=== PATIENT | female | born 1950 | race Caucasian/White ===

== ENCOUNTER 2024-03-24 08:36 | Inpatient (IN) | payer MEDICARE, OTHER ==
[2024-03-22 12:37] LABS: BILIRUBIN,URINE NEGATIVE (Neg); CLARITY,URINE CLOUDY (Clear); COLOR,URINE YELLOW (Yellow); GLUCOSE, URINE NEGATIVE (Neg); KETONES,URINE NEGATIVE (Neg); LEUKOCYTE ESTERASE ,URINE SMALL (Neg); NITRITES, URINE POSITIVE (Neg); OCCULT BLOOD,URINE LARGE (Neg); PH,URINE 5.5 (4.8-8.0); PROTEIN,URINE NEGATIVE (Neg); UROBILINOGEN,URINE 0.2 E.U/dL (0.2-1.0)
[2024-03-22 12:39] LABS: UA COLLECTION TYPE CLN CATCH MIDSTREAM
[2024-03-22 12:41] LABS: BASOPHILS % (AUTO) 0.3 % (0-1); EOSINOPHILS # (AUTO) 0.1 X10'3 (0-0.9); EOSINOPHILS % (AUTO) 1.2 % (0-6); LYMPHOCYTES # (AUTO) 1.8 X10'3 (1.1-4.8); LYMPHOCYTES % (AUTO) 22.9 % (21-51); MEAN CORPUSCULAR HEMOGLOBIN 31.3 PG (27.0-31.0); MEAN CORPUSCULAR HGB CONC 33.4 g/dL (33.0-36.5); MEAN CORPUSCULAR VOLUME 93.8 FL (78-98); MEAN PLATELET VOLUME 8.1 FL (7.4-10.4); MONOCYTES # (AUTO) 0.7 X10'3 (0-0.9); MONOCYTES % (AUTO) 8.9 % (2-12); NEUTROPHILS # (AUTO) 5.3 X10'3 (1.8-7.7); NEUTROPHILS % (AUTO) 66.7 % (42-75); PRE OP HEMATOCRIT 41.2 % (35.0-45.0); PRE OP HEMOGLOBIN 13.8 g/dL (12.0-16.0); PRE OP PLATELET COUNT 211 X10'3 (140-440); PRE OP WHITE BLOOD COUNT 7.9 10'3 (4.8-10.8); RED CELL DISTRIBUTION WIDTH 12.9 % (11.5-14.5)
[2024-03-22 12:48] LABS: BACTERIA,URINE 2+ /HPF (Neg); WBC,URINE TNTC /HPF (0-4)
[2024-03-22 12:49] LABS: RBC,URINE 20-50 /HPF (0-2); SQUAMOUS EPITHELIAL CELL,UR FEW /LPF (FEW); STARCH,URINE MODERATE /HPF (NEGATIVE)
[2024-03-22 12:54] LABS: PRE OP INR 1.1 INR; PRE OP PROTIME 11.4 SECONDS (9.0-12.0)
[2024-03-22 12:56] LABS: ALBUMIN 3.5 G/DL (3.4-5.0); ALBUMIN/GLOBULIN RATIO 0.8 (1.1-1.5); ALKALINE PHOSPHATASE 72 IU/L (46-116); BLOOD UREA NITROGEN 15 MG/DL (7-18); BUN/CREATININE RATIO 16.7 (10.0-20.0); CALCIUM 10.2 MG/DL (8.5-10.1); CHLORIDE 103 MMOL/L (99-107); PRE OP ALT 38 U/L (30-65); PRE OP ANION GAP 8 (8-16); PRE OP AST 23 U/L (10-37); PRE OP BILIRUB, TOTAL 0.4 MG/DL (0.0-1.0); PRE OP GLUCOSE 142 MG/DL (70-104); PRE OP POTASSIUM 4.3 MMOL/L (3.4-5.1); PRE OP SODIUM 139 MMOL/L (135-145); TOTAL CARBON DIOXIDE 28.3 MMOL/L (24-32); TOTAL PROTEIN 7.9 G/DL (6.4-8.2); eGFR 61 ML/MIN
[2024-03-22 13:52] LABS: HEMOGLOBIN A1C 7.1 % (4.5-6.2)
[~2024-03-24] VITALS: Ht 190.5 cm; Wt 120.4 kg
[2024-03-24] VITALS (28 sets, daily range): BP systolic 135–196; BP diastolic 53–81; PULSE 68–95; RESP 13–23; TEMP 97.7–98.7; O2SAT 88–97
[2024-03-24] MEDS: DOCUMENT DATE & TIME OF BETA-BLOCKER PO ONE (05:30)
[~2024-03-24 08:36] MED LIST: AMLO10TA13 PO; ASPI-1265 PO; ATOR10TA87 PO; DABI150C PO; ESCI-8 PO; EZET10TA6 PO; LANTUS SUBCUT; LOP25T PO; LOSA-415 PO; OMEP20CA15 PO; SEMA1PEN3 SUBCUT; TRAZ-256 PO; ondansetron/PF 4mg/2ml inj IV PRN
[2024-03-24] MEDS: famotidine 20mg tablet PO ONE (09:34)
[2024-03-24] MEDS: ringers solution, lacted 1,000 ML IV SCH (09:35)
[2024-03-24] MEDS: vancomycin 1,500 MG in NS 300ml IV soln IV ONE (09:36)
[2024-03-24] MEDS ORDERED: iohexol 350MG/ML 100ml bottle IV ONE (11:01)
[2024-03-24] MEDS ORDERED: sevoflurane 250ml liquid IH ONE (11:06)
[2024-03-24] MEDS ORDERED: fentaNYL/PF 50MCG/1 ML 2ML syringe ONE (11:22)
[2024-03-24] MEDS: protamine sulfate 10mg/ml inj. ONE (11:41)
[2024-03-24] MEDS ORDERED: midazolam 1 mg/ML 2ml injection ONE (11:48)
[2024-03-24] MEDS ORDERED: propofol inj 20 ML IV ONE (11:48)
[2024-03-24] MEDS ORDERED: rocuronium 10mg/ml inj IV ONE (11:48)
[2024-03-24] MEDS ORDERED: heparin 1,000unit/ml 10ml vial 10 ML ONE ×2 (11:48)
[2024-03-24] MEDS ORDERED: ondansetron/PF 4mg/2ml inj ONE (11:49)
[2024-03-24] MEDS ORDERED: dexamethasone sod phosphate 4mg/ml inj. ONE (11:49)
[2024-03-24] MEDS ORDERED: LIDOcaine 1%/PF 5ML 10 MG/ML VIAL ONE (11:49)
[2024-03-24] MEDS ORDERED: neostigmine methylsulfate 1 MG/ML 10ml vial ONE (12:19)
[2024-03-24] MEDS ORDERED: glycopyrrolate 0.2mg/ml inj ONE (12:19)
[2024-03-24] MEDS ORDERED: docusate sod 100mg capsule PO PRN (12:25)
[2024-03-24] MEDS ORDERED: proCHLORperazine 10 MG/2 ml inj IV PRN ×2 (12:25→12:30)
[2024-03-24] MEDS ORDERED: potassium Cl 40MEQ/1/2NS 520ml 520 ML IV PRN (12:25)
[2024-03-24] MEDS ORDERED: magnesium sulf-water 2g/50mL 50 ML IV PRN (12:25)
[2024-03-24] MEDS ORDERED: glucagon, human recombinant 1mg kit SUBCUT PRN (12:25)
[2024-03-24] MEDS ORDERED: ALPRAZolam 0.25mg tablet PO PRN (12:25)
[2024-03-24] MEDS ORDERED: DEXTROSE 15 GM of carb/4 tabs (each vial/BOTTLE has 4 tablets) PO PRN ×2 (12:25)
[2024-03-24] MEDS ORDERED: dextrose 50%-water 50ml dispensing syringe IV PRN ×2 (12:25)
[2024-03-24] MEDS ORDERED: potassium Cl 40MEQ/270ML bag 250 ML IV PRN (12:25)
[2024-03-24] MEDS ORDERED: potassium CL 10mEq/100ml bag 100 ML IV PRN (12:25)
[2024-03-24] MEDS ORDERED: HYDROcodone/acetaminophen 5mg/325mg tablet PO PRN (12:25)
[2024-03-24] MEDS ORDERED: potassium Cl 20mEq/100mL bag 100 ML IV PRN (12:25)
[2024-03-24] MEDS ORDERED: labetalol 20mg/4ml (5mg/ml) syringe IV PRN ×2 (12:25→12:30)
[2024-03-24] MEDS ORDERED: ondansetron/PF 4mg/2ml inj IV PRN ×2 (12:25→12:30)
[2024-03-24] MEDS ORDERED: acetaminophen 325mg tablet PO PRN (12:25)
[2024-03-24] MEDS ORDERED: hydrALAZINE 20mg/ml inj. IV PRN ×2 (12:25→12:30)
[2024-03-24] MEDS ORDERED: diphenhydrAMINE 25mg capsule PO PRN (12:25)
[2024-03-24] MEDS ORDERED: pantoprazole 40mg Tablet.DR PO PRN (12:25)
[2024-03-24] MEDS ORDERED: potassium Cl 20 mEq SR tablet PO PRN (12:25)
[2024-03-24] MEDS ORDERED: magnesium sulf-water 4G/100mL 100 ML IV PRN (12:25)
[2024-03-24] MEDS ORDERED: morphine 4 MG/ML inj SYRINge IV PRN (12:30)
[2024-03-24] MEDS ORDERED: meperidine/PF 25mg/ml syringe IV PRN (12:30)
[2024-03-24] MEDS ORDERED: ringers solution, lacted 1,000 ML IV SCH (12:30)
[2024-03-24] MEDS ORDERED: morphine 2 MG/ML inj. syringe IV PRN (12:30)
[2024-03-24] MEDS ORDERED: HYDROmorphone/PF 0.2 MG/ML SYRINGE IV PRN ×2 (12:30)
[2024-03-24] MEDS: acetaminophen 1,000mg/100ml IV 100 ML IV ONE (13:14)
[2024-03-24] MEDS: normal saline 1000ml 1,000 ML IV SCH (15:15)
[2024-03-24] MEDS: sod chloride 0.9% 10ml flush syringe IV SCH (16:01)
[2024-03-24] MEDS ORDERED: INSULIN LISPRO 100 UNIT/ML INSULN.PEN MULTI-DOSE SQ SCH (17:00)
[2024-03-24] MEDS: INSULIN LISPRO 100 UNIT/ML INSULN.PEN MULTI-DOSE SQ SCH (17:00)
[2024-03-24] MEDS: atorvastatin 10mg tablet PO SCH (21:07)
[2024-03-24] MEDS: metoprolol tartrate 25mg tablet PO SCH (21:07)
[2024-03-24] MEDS: vancomycin/NS 1 GM ADD-VANTAGE 250 ML IV SCH (21:09)
[2024-03-24] MEDS: traZODone 50mg tablet PO SCH (22:03)
[2024-03-24] MEDS: HALLS - SOOTHE MENTHOL 1.8 MG cough drop LOZENGE MM PRN (23:25)
[2024-03-25 02:00] VITALS: BP 136/55; PULSE 65; RESP 20; TEMP 98.7; O2SAT 97
[2024-03-25 06:30] VITALS: O2SAT 94
[2024-03-25 07:03] LABS: BASOPHILS % (AUTO) 0.1 % (0-1); EOSINOPHILS % (AUTO) 0 % (0-6); HEMATOCRIT 39.9 % (35.0-45.0); HEMOGLOBIN 13.5 g/dl (12.0-16.0); LYMPHOCYTES # (AUTO) 1.1 X10'3 (1.1-4.8); LYMPHOCYTES % (AUTO) 11.3 % (21-51); MEAN CORPUSCULAR HEMOGLOBIN 31.7 PG (27.0-31.0); MEAN CORPUSCULAR HGB CONC 33.9 g/dL (33.0-36.5); MEAN CORPUSCULAR VOLUME 93.5 FL (78-98); MEAN PLATELET VOLUME 8.2 FL (7.4-10.4); MONOCYTES # (AUTO) 0.8 X10'3 (0-0.9); MONOCYTES % (AUTO) 7.5 % (2-12); NEUTROPHILS # (AUTO) 8.1 X10'3 (1.8-7.7); NEUTROPHILS % (AUTO) 81.1 % (42-75); PLATELET COUNT 179 X10'3 (140-440); RED BLOOD COUNT 4.26 X10'6 (4.20-5.60); RED CELL DISTRIBUTION WIDTH 12.8 % (11.5-14.5)
[2024-03-25 07:12] LABS: PROTHROMBIN TIME 11.2 SECONDS (9.0-12.0)
[2024-03-25 07:24] LABS: ALANINE AMINOTRANSFERASE 28 U/L (12-78); ALBUMIN 2.9 G/DL (3.4-5.0); ALBUMIN/GLOBULIN RATIO 0.8 (1.1-1.5); ALKALINE PHOSPHATASE 54 IU/L (46-116); ANION GAP 7 (8-16); ASPARTATE AMINO TRANSFERASE 23 U/L (10-37); BILIRUBIN,TOTAL 0.4 MG/DL (0.1-1.0); BLOOD UREA NITROGEN 16 MG/DL (7-18); BUN/CREATININE RATIO 18.4 (10.0-20.0); CALCIUM 9.2 MG/DL (8.5-10.1); CHLORIDE 105 MMOL/L (99-107); CREATININE 0.87 MG/DL (0.40-0.90); GLUCOSE 179 MG/DL (70-104); POTASSIUM 4.2 MMOL/L (3.5-5.1); PRO BRAIN NATRIURETIC PEPTIDE 937 PG/ML (0-450); SODIUM 139 MMOL/L (135-145); TOTAL CARBON DIOXIDE 27.1 MMOL/L (24-32); TOTAL PROTEIN 6.7 G/DL (6.4-8.2); eCRCL 71 ML/MIN; eGFR 63 ML/MIN
[2024-03-25 08:00] VITALS: BP 157/63; PULSE 78; RESP 17; TEMP 98.3; O2SAT 97
[2024-03-25] MEDS: pantoprazole 40mg Tablet.DR PO SCH (08:17)
[2024-03-25] MEDS: ezetimibe 10mg tablet PO SCH (08:17)
[2024-03-25] MEDS: losartan 25mg tablet PO SCH (08:18)
[2024-03-25] MEDS: amLODIPine 5mg tablet PO SCH (08:18)
[2024-03-25] MEDS: ESCITALOPRAM 10 mg tablet 10 MG TABLET PO SCH (08:19)
[2024-03-25] MEDS: dabigatran 150mg capsule PO SCH (10:03)
[2024-03-25] MEDS: ciprofloxacin 250mg tablet PO ONE (10:03)
[2024-03-25 11:00] VITALS: BP 149/66; PULSE 71; RESP 12; TEMP 98.1; O2SAT 96
== END 2024-03-25 17:15 | disposition home or self-care (01) | DRG 274 ==
LOC: PAS IN 08:36 → PCU 3S 15:02
PROVIDERS: ADMIT Student in an Organized Health Care Education/Training Program; ATTEND Student in an Organized Health Care Education/Training Program
PROC: B24BZZ4 Ultrasonography of Heart with Aorta, Transesophageal (ICD-10-PCS; 2024-03-24)
PROC: 04HY32Z Insertion of Monitoring Device into Lower Artery, Percutaneous Approach (ICD-10-PCS; 2024-03-24)
PROC: B54BZZA Ultrasonography of Right Lower Extremity Veins, Guidance (ICD-10-PCS; 2024-03-24)
PROC: B2151ZZ Fluoroscopy of Left Heart using Low Osmolar Contrast (ICD-10-PCS; 2024-03-24)
PROC: 02L73DK Occlusion of Left Atrial Appendage with Intraluminal Device, Percutaneous Approach (ICD-10-PCS; principal; 2024-03-24 11:06)
DX: I48.91 Unspecified atrial fibrillation (principal); Z00.6 Encounter for examination for normal comparison and control in clinical research program; E78.5 Hyperlipidemia, unspecified; I10 Essential (primary) hypertension; E11.9 Type 2 diabetes mellitus without complications; I25.10 Atherosclerotic heart disease of native coronary artery without angina pectoris; G47.30 Sleep apnea, unspecified; Z85.028 Personal history of other malignant neoplasm of stomach; Z79.02 Long term (current) use of antithrombotics/antiplatelets; Z79.4 Long term (current) use of insulin; Z79.85 Long-term (current) use of injectable non-insulin antidiabetic drugs; Z95.0 Presence of cardiac pacemaker
CPT/HCPCS: 33340; 36415; 71045; 71046; 76937; 80053; 81001; 82948; 83036; 83735; 83880; 85025; 85347; 85610; 85730; 86885; 86900; 86901; 86920; 87077; 87081; 87088; 87186; 93005; 93308; 93312; 93325; A4615; A4618; A6258; A6449; C1760; C1889; C1893; C1894; G0378; J0131; J1100; J1644; J1815; J2250; J2405; J2704; J2710; J2720; J3010; J3370; J3490; J7030; J7040; J7120; Q9967

== ENCOUNTER 2024-05-17 10:28 | Day surgery (SDC) | payer MEDICARE, OTHER ==
[~2024-05-17] VITALS: Ht 190.5 cm; Wt 121.2 kg
[2024-05-17] VITALS (13 sets, daily range): BP systolic 115–145; BP diastolic 54–76; PULSE 65–87; RESP 12–16; TEMP 97.9; O2SAT 95–98
[~2024-05-17 10:28] MED LIST changes: -ondansetron/PF 4mg/2ml inj IV PRN
[2024-05-17] MEDS ORDERED: MIDAZolam 1mg/ml 10ml vial IV ONE (11:15)
[2024-05-17 11:59] LABS: ALBUMIN 3.6 G/DL (3.4-5.0); ANION GAP 7 (8-16); BLOOD UREA NITROGEN 17 MG/DL (7-18); BUN/CREATININE RATIO 21.3 (10.0-20.0); CALCIUM 10.3 MG/DL (8.5-10.1); CHLORIDE 103 MMOL/L (99-107); GLUCOSE 118 MG/DL (70-104); POTASSIUM 4.5 MMOL/L (3.5-5.1); SODIUM 140 MMOL/L (135-145); TOTAL CARBON DIOXIDE 29.7 MMOL/L (24-32); eCRCL 77 ML/MIN; eGFR 70 ML/MIN
[2024-05-17 12:04] LABS: APTT 21 SECONDS (22-32); PROTHROMBIN TIME 11.2 SECONDS (9.0-12.0)
[2024-05-17 12:14] LABS: BASOPHILS % (AUTO) 0.3 % (0-1); EOSINOPHILS # (AUTO) 0.1 X10'3 (0-0.9); EOSINOPHILS % (AUTO) 1.8 % (0-6); HEMATOCRIT 41.2 % (35.0-45.0); HEMOGLOBIN 13.8 g/dl (12.0-16.0); LYMPHOCYTES # (AUTO) 1.9 X10'3 (1.1-4.8); LYMPHOCYTES % (AUTO) 28.1 % (21-51); MEAN CORPUSCULAR HEMOGLOBIN 31.2 PG (27.0-31.0); MEAN CORPUSCULAR HGB CONC 33.6 g/dL (33.0-36.5); MEAN CORPUSCULAR VOLUME 92.9 FL (78-98); MEAN PLATELET VOLUME 8.1 FL (7.4-10.4); MONOCYTES # (AUTO) 0.7 X10'3 (0-0.9); MONOCYTES % (AUTO) 10.6 % (2-12); NEUTROPHILS # (AUTO) 4.1 X10'3 (1.8-7.7); NEUTROPHILS % (AUTO) 59.2 % (42-75); PLATELET COUNT 186 X10'3 (140-440); RED BLOOD COUNT 4.44 X10'6 (4.20-5.60); RED CELL DISTRIBUTION WIDTH 13.4 % (11.5-14.5); WHITE BLOOD COUNT 6.9 X10'3 (4.5-11.0)
[2024-05-17] MEDS: normal saline 1000ml 1,000 ML IV SCH (13:52)
[2024-05-17] MEDS: fentaNYL/PF 50MCG/1 ML 2ML syringe IV ONE (13:53)
[2024-05-17] MEDS ORDERED: ASPI-1265 PO (15:13)
[2024-05-17] MEDS ORDERED: CLOP-32 PO (15:13)
== END 2024-05-17 15:10 | disposition home or self-care (01) ==
LOC: SSTAY O 10:28
PROVIDERS: ATTEND Student in an Organized Health Care Education/Training Program
DX: I48.91 Unspecified atrial fibrillation (principal); I10 Essential (primary) hypertension; I25.10 Atherosclerotic heart disease of native coronary artery without angina pectoris; E11.9 Type 2 diabetes mellitus without complications; E78.00 Pure hypercholesterolemia, unspecified; G47.33 Obstructive sleep apnea (adult) (pediatric); Z85.028 Personal history of other malignant neoplasm of stomach; Z79.82 Long term (current) use of aspirin; Z79.899 Other long term (current) drug therapy; Z95.0 Presence of cardiac pacemaker; Z95.818 Presence of other cardiac implants and grafts
CPT/HCPCS: 36415; 80048; 85025; 85610; 85730; 93325; 94760; C8925; J3010; J7030; 93312